=== PATIENT | male | born 1935 | race African-American/Black ===

== ENCOUNTER 2017-10-12 09:53 | Emergency (ER) | payer MEDICARE, OTHER ==
[~2017-10-12] VITALS: Ht 188 cm; Wt 75.0 kg
[~2017-10-12 09:53] MED LIST: ESOM40CA PO; EZET1TAB7 PO; NAPR-681 PO; OMEG500C PO; SAXA1TBM2 PO; SILO8CAP PO; TRAM50TA3 PO; VALS160T2 PO
[2017-10-12 10:53] LABS: BASOPHILS % 1.3 % (0.0-2.0); EOSINOPHILS % 1.4 % (0.0-5.0); HEMATOCRIT. 41.5 % (42.0-52.0); HEMOGLOBIN. 13.7 g/dL (14.0-18.0); LYMPHOCYTES % 27.7 % (20.0-50.0); MEAN CORPUSCULAR HEMOGLOBIN 27.8 pg (28.0-32.0); MEAN CORPUSCULAR VOLUME 84.2 fL (80.0-94.0); MEAN PLATELET VOLUME 8.2 fl (7.4-10.4); MONOCYTES % 9.8 % (2.0-8.0); NEUTROPHILS % 59.8 % (40.0-76.0); PLATELET 184 x1000/uL (130-400); RED BLOOD CELL COUNT 4.92 mill/uL (4.7-6.1); RED CELL DISTRIBUTION WIDTH 13.4 % (11.6-14.6)
[2017-10-12 10:59] LABS: CHLORIDE 109 mEq/L (98-107)
[2017-10-12 11:00] LABS: INR 1.1
[2017-10-12 12:59] LABS: CLARITY URINE CLEAR (CLEAR); COLOR URINE YELLOW (YELLOW); KETONES URINE NEGATIVE (NEGATIVE); LEUKOCYTE ESTERASE URINE NEGATIVE (NEGATIVE); NITRITE URINE NEGATIVE (NEGATIVE); OCCULT BLOOD URINE NEGATIVE (NEGATIVE); PROTEIN URINE NEGATIVE (NEGATIVE); SPECIFIC GRAVITY URINE 1.038 (1.005-1.030); UROBILINOGEN URINE 0.2 E.U./dL (0.2-1.0)
[2017-10-12 15:30] VITALS: BP 141/89
== END 2017-10-12 15:47 | disposition home or self-care (01) ==
LOC: ER 10:46
DX: R10.11 Right upper quadrant pain (principal); I11.9 Hypertensive heart disease without heart failure; E11.9 Type 2 diabetes mellitus without complications; E78.00 Pure hypercholesterolemia, unspecified; Z95.1 Presence of aortocoronary bypass graft; Z88.8 Allergy status to other drugs, medicaments and biological substances
CPT/HCPCS: 36415; 80053; 81003; 83690; 85025; 85610; 99284

== ENCOUNTER → 2019-03-24 | Outpatient (CLI) | payer MEDICARE, OTHER ==
[~2019-03-24] MED LIST changes: -SILO8CAP PO; +SILO8CAP2 PO
== END | disposition home or self-care (01) ==
LOC: CT 12:20
PROVIDERS: ATTEND Urology
DX: K76.0 Fatty (change of) liver, not elsewhere classified (principal); K80.20 Calculus of gallbladder without cholecystitis without obstruction; N20.0 Calculus of kidney; I70.0 Atherosclerosis of aorta; N40.0 Benign prostatic hyperplasia without lower urinary tract symptoms; N32.3 Diverticulum of bladder
CPT/HCPCS: 74176

== ENCOUNTER 2021-06-11 01:51 | Emergency (ER) | payer MEDICARE, OTHER ==
[~2021-06-11] VITALS: Ht 172.7 cm; Wt 87.0 kg
[2021-06-11 01:55] VITALS: BP 148/70
[2021-06-11] MEDS ORDERED: ACETAMINOPHEN 325MG TABLET PO ONE (02:30)
== END 2021-06-11 05:59 | disposition home or self-care (01) ==
LOC: ER 01:51
DX: M79.621 Pain in right upper arm (principal); E11.9 Type 2 diabetes mellitus without complications; I10 Essential (primary) hypertension; Z95.1 Presence of aortocoronary bypass graft; Z88.5 Allergy status to narcotic agent
CPT/HCPCS: 73060; 99283